=== PATIENT | male | born 2005 | race Caucasian/White ===

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

== ENCOUNTER 2024-04-05 16:49 | Emergency (ER) | payer OTHER, SELFPAY ==
--- NOTE | ~2024-04-05 | XR_ITS ---
CHEST RADIOGRAPH, PA AND LATERAL CLINICAL HISTORY: cough X 1 MONTH . COMPARISON: None available TECHNIQUE: PA and lateral views of the chest. FINDINGS The cardiomediastinal silhouette is unremarkable. Peribronchial thickening is identified. The remainder of the lungs are clear. Visualized osseous structures and soft tissues are unremarkable. IMPRESSION: Peribronchial thickening, without focal infiltrate or effusion. Reviewed, dictated and finalized at location A. [employer] TECHNICAL OFFICER
--- NOTE | 2024-04-05 16:50 | ED.URI ---
HPI - URI/Sore Throat General Chief Complaint: Upper Respiratory Infection Stated Complaint: cough (daughter has whooping cough) Time Seen by Provider: 04/05/24 16:50 History of Present Illness HPI Narrative: 18-year-old male presents to the emergency department for cough and congestion for 1 month. Patient is 2-month-old child recently was diagnosed with pertusses by the commercial teller and was advised to come to the ED for treatment. The patient is reporting nasal congestion, cough and burning in his chest when coughing for 1 month. Denies fever. Related Data Allergies Allergy/AdvReac Type Severity Reaction Status Date / Time No Known Allergies Allergy Verified 02/28/22 11:22 Review of Systems Review of Systems: All systems reviewed & are unremarkable except as noted in HPI and below PMFSH Past Medical History Medical History (Updated 04/05/24 @ 18:08 by Glenny Pandya PA-C) Fracture of nose, closed History of repaired hypospadias Social History Social History Tobacco type: e-cigarettes/vaping Second hand tobacco smoke exposure: Yes Living arrangements: with family Occupation/Education: student Gender identity (if verbalized by the patient): Female Exam Narrative: GENERAL: Well-appearing, well-nourished, and in no acute distress. HEAD: Normocephalic, atraumatic. EYES: EOMI. ENT: Nares clear, no rhinorrhea or epistaxis. Mucous membranes moist. NECK: Supple. CHEST: Clear to auscultation. No respiratory distress. HEART: Regular rate and rhythm. No murmur heard. Normal peripheral pulses. ABDOMEN: Soft, nontender, nondistended, normal active bowel sounds. EXTREMITIES: Normal range of motion. No edema. SKIN: Warm, dry, no rash. NEURO: No focal deficits. Alert and oriented x3 Course Vital Signs Vital signs: Vital Signs Temperature 99.0 F 04/05/24 17:07 Pulse Rate 70 04/05/24 17:07 Respiratory Rate 18 04/05/24 17:07 Blood Pressure 132/66 04/05/24 17:07 Pulse Oximetry 98 04/05/24 17:07 Oxygen Delivery Room Air 04/05/24 17:07 Temperature 98.3 F 04/05/24 17:23 Pulse Rate 99 11/14/24 17:23 Respiratory Rate 16 04/05/24 17:23 Blood Pressure 118/68 04/05/24 17:23 Pulse Oximetry 98 04/05/24 17:23 Oxygen Delivery Room Air 04/05/24 17:07 MDM - URI/Sore Throat MDM Narrative Medical decision making narrative: 18-year-old male presents to the emergency department for cough and congestion for 1 month. His child recently was diagnosed with pertussis and he was sent to the ED for post exposure prophylaxis. Plan to treat treat for pertussis post exposure prophylaxis and obtain chest x-ray and COVID/flu/ RSV. Prior to obtaining these test, patient left the department with a steady gait. Discharge Plan Discharge Clinical Impression: Upper respiratory infection, Pertussis exposure Patient Disposition: Elopement After Seen by Prov Condition: Stable Prescriptions: No Action amoxicillin 875 mg tablet 875 mg PO Q12H Qty: 20 0RF ondansetron 4 mg tablet,disintegrating 4 mg PO Q6H PRN (Reason: nausea and vomiting) Qty: 10 0RF Follow-up/Referrals: PHYSICIAN,AUTOMATION CONTROLS ENGINEER [Primary Care Provider] -
[2024-04-05 17:07] VITALS: BP 132/66; PULSE 70; RESP 18; TEMP 37.2; O2SAT 98
[2024-04-05 17:23] VITALS: BP 118/68; PULSE 99; RESP 16; TEMP 36.8; O2SAT 98
--- NOTE | 2024-04-05 17:47 | PC.NURSE ---
Pt declined to be seen due to wait time, pt ambulated out in NAD
== END 2024-04-05 18:34 | disposition left against medical advice (07) ==
PROVIDERS: Emergency Provider Physician Assistant
DX: J06.9 Acute upper respiratory infection, unspecified (principal); Z20.1 Contact with and (suspected) exposure to tuberculosis
CPT/HCPCS: 71046; 99281